=== PATIENT | female | born 1990 | race Caucasian/White ===

== ENCOUNTER 2023-12-23 01:04 | Observation (INO) | payer SELFPAY ==
[2023-12-23] MEDS ORDERED: KETOROLAC 30 MG/ML INJ ONE (02:03)
[2023-12-23 02:06] LABS: Anion Gap 9.1 mEq/L (5.0-15.0); Potassium 3.1 mEq/L (3.5-5.1)
[2023-12-23 02:09] LABS: Troponin High Sensitivity 1715.4 pg/mL (<58.9)
[2023-12-23 02:12] LABS: Absolute Eosinophils 0.1 K/uL (0-0.5); Absolute Lymphocytes (CBC) 2.5 K/uL (0.7-4.9); Absolute Monocytes 0.4 K/uL (0.1-1.3); Absolute Neutrophil 5.6 K/uL (1.8-8.0); Basophils % 0.5 % (0-1.3); Eosinophils % 1.4 % (0-4.4); Hematocrit 44.2 % (36.0-45.0); Hemoglobin 15.2 g/dL (12.0-15.0); Lymphocytes % 28.8 % (15.3-44.8); MCH 31.2 pg (27.0-35.0); MCHC 34.3 g/dL (32.0-36.0); MCV 90.9 fL (80-100); Monocytes % 4.3 % (3.3-12.3); Platelets 243 thou/uL (152-406); RBC Red Blood Cell Count 4.86 M/uL (3.86-4.86); Red Cell Distribution Width 13.9 % (12.1-15.2)
[2023-12-23] MEDS ORDERED: MORPHINE 4 MG/ML SYR ONE (02:22)
[2023-12-23] MEDS ORDERED: ENOXAPARIN 80 MG/0.8 ML SQ ONE (02:22)
[2023-12-23] MEDS ORDERED: ASPIRIN 81 MG CHEWABLE TABLET ONE (02:22)
--- NOTE | 2023-12-23 02:30 | EDPHYS ---
Physician Documentation [facility] Name: Manjeet Lassiter Age: 33 yrs Sex: Female : 1990 Arrival Date: 12/23/2023 Time: 01:04 Bed 14 Private MD: ED Physician Michael Miranda HPI: 12/22 01:13 This 33 yrs old Female presents to ER via Unassigned with complaints of Chest ec2 Pain, Arm Pain. 01:13 Patient with history of anxiety as well as hypertension arrives today for left upper ec2 chest pain as well as arm pain. Reports pain is worse with laying flat. Patient reports no difficulty breathing. States that she has some stressors at home that she believes are exacerbating the symptoms. No falls injuries or trauma. . 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 - Infectious Disease History:: Denies. - Social history:: Smoking status: Patient reports the use of cigarette tobacco products, smokes one pack cigarettes per day. ROS: 01:13 Constitutional: as per hpi ec2 Exam: 01:13 Constitutional: GEN: NAD Head: atraumatic Eyes: EOMI Ears: External ears are ec2 normal. CV: regular rate LUNGS: no respiratory distress ABD: non-distended SKIN: no evidence of rashes MSK: Left upper chest wall with reproducible TTP, no deformities or crepitus appreciated. Vital Signs: 01:04 BP 150 / 107; Pulse 84; Resp 18; Temp 97.6(O); Pulse Ox 98% on R/A; Weight 74.84 kg; ss Height 5 ft. 7 in. ; Pain 5/10; 01:30 BP 152 / 108; Pulse 78; Resp 19; Pulse Ox 98% on R/A; al5 02:00 BP 148 / 104; Pulse 76; Resp 19; Pulse Ox 97% on R/A; al5 02:30 BP 147 / 108; Pulse 84; Resp 19; Pulse Ox 98% on R/A; al5 03:00 BP 152 / 104; Pulse 75; Resp 16; Pulse Ox 99% on R/A; al5 03:50 BP 139 / 92; Pulse 76; Resp 18; Pulse Ox 98% on R/A; ss 04:00 BP 137 / 98; Pulse 70; Resp 18; Pulse Ox 99% on R/A; al5 01:04 Body Mass Index 25.84 (74.84 kg, 170.18 cm) ss 01:04 Pain Scale: Adult ss MDM: 01:06 Patient medically screened. ec2 01:13 Data reviewed: vital signs. ED course: Patient with history of anxiety and hypertension ec2 arrives today for left chest pain. Examination remarkable for reproducible chest wall TTP. Will obtain lab work, EKG, chest x-ray and treat the patient's symptoms. Differential includes costochondritis, ACS, pleurisy, anxiety . 01:26 ED course: EKG independently reviewed and interpreted by me, shows normal sinus rhythm, ec2 rate of 83, no acute ST segment elevations, intervals are nonconcerning. . 02:14 ED course: Troponin elevated at 1700. Metabolic profile shows hypokalemia 3.1. Will ec2 give the patient potassium, aspirin, start the patient on Lovenox. Will admit for NSTEMI. . 02:29 ED course: Discussed case with hospitalist, pending admission. Chest x-ray ec2 independently reviewed and interpreted by me, shows no acute actionable process.. 12/22 01:13 Order name: Basic Metabolic Panel; Complete Time: 02:13 ec2 12/22 01:13 Order name: CBC with Diff; Complete Time: 02:28 ec2 12/22 01:13 Order name: Troponin HS; Complete Time: 02:13 ec2 12/22 02:17 Order name: PT-INR ec2 12/22 02:17 Order name: Ptt, Activated ec2 12/22 03:22 Order name: Urine Drug Screen EDMS 12/22 03:22 Order name: NT PRO-BNP EDMS 12/22 03:22 Order name: Thyroid Stimulating Hormone EDMS 12/22 03:22 Order name: CBC with Automated Diff EDMS 12/22 03:22 Order name: CBC with Automated Diff EDMS 12/22 03:22 Order name: Comprehensive Metabolic Panel EDKY 12/22 03:22 Order name: Comprehensive Metabolic Panel EDKY 12/22 03:22 Order name: Lipid Profile [facility] 12/22 03:22 Order name: Lipid Profile [facility] 12/22 03:22 Order name: Troponin High Sensitivity [facility]KY 12/22 03:22 Order name: Troponin High Sensitivity [facility] 12/22 03:22 Order name: Troponin High Sensitivity [facility] 12/22 01:13 Order name: XRAY Chest (1 view) 2 12/22 03:22 Order name: Echo with Doppler EDKY 12/22 03:42 Order name: Angio Aorta For Dissection EDKY 12/22 03:22 Order name: CONS Physician Consult EDKY 12/22 01:13 Order name: Cardiac monitoring; Complete Time: 01:25 ec2 12/22 01:13 Order name: EKG - Nurse/Tech; Complete Time: 01:25 ec2 12/22 01:13 Order name: IV Saline Lock; Complete Time: 01:25 ec2 12/22 01:13 Order name: Labs collected and sent; Complete Time: 01:25 ec2 12/22 01:13 Order name: O2 Per Protocol; Complete Time: 01:16 ec2 12/22 01:13 Order name: O2 Sat Monitoring; Complete Time: 01:17 ec2 Administered Medications: 02:09 Drug: Ketorolac IVP 15 mg IVP once Route: IVP; Site: right antecubital; al5 03:36 Follow up: Response: No adverse reaction; Pain is unchanged, physician notified al5 02:37 Drug: Aspirin PO Chewable Tablet 324 mg PO once; 81 mg tablets x 4 Route: PO; al5 03:37 Follow up: Response: No adverse reaction al5 02:37 Drug: morphine IVP or IV 4 mg IVP once over 4 mins Route: IVP; Infused Over: 4 mins; al5 Site: right antecubital; 03:37 Follow up: Response: No adverse reaction; Pain is decreased al5 02:37 Drug: Enoxaparin Sub-Q 1 mg/kg Sub-Q once Route: Sub-Q; Site: abdomen; al5 03:36 Follow up: Response: No adverse reaction al5 03:54 Drug: Potassium Chloride PO 40 mEq PO once Route: PO; al5 04:17 Follow up: Response: No adverse reaction al5 03:54 Drug: Potassium Chloride IV 20 mEq IV at calculated rate once; administer over 1-2 al5 hours Route: IV; Rate: calculated rate; Site: right antecubital; 04:17 Follow up: Response: No adverse reaction; IV Status: Infusion continued upon admission al5 Disposition Summary: 12/23/23 02:29 Hospitalization Ordered Notes: Hospitalization Status: Inpatient Admission ec2 Provider: Hany Villeda ec2 [facility] Condition: Stable ec2 Problem: new ec2 Symptoms: have improved ec2 Bed/Room Type: Standard ec2 Room Assignment: 406(12/23/23 03:29) [facility] Diagnosis - NSTEMI ec2 Discharge Instructions: - Discharge Summary Sheet ec2 - Nonspecific Chest Pain, Adult, [id number] ec2 Forms: - Medication Reconciliation Form ec2 - SBAR form ec2 - Leadership Thank You Letter ec2 Signatures: Dispatcher [employer] EDMS Odalis Manzo RN RN Michael Miranda MD MD ec2 Jessica Leo [facility] Araseli Benitez RN RN al5 Corrections: (The following items were deleted from the chart) 01:13 01:13 Chest Single View+RAD.RAD.BRZ ordered. EDKY EDMS 03:29 02:29 ec2 [facility] 03:42 03:22 Chest Angio ordered. EDKY EDMS
--- NOTE | 2023-12-23 02:30 | ER ---
Nurse's Notes [facility] Name: Manjeet Lassiter Age: 33 yrs Sex: Female : 1990 Arrival Date: 12/23/2023 Time: 01:04 Bed 14 Private MD: Diagnosis: NSTEMI Presentation: 12/22 01:04 Chief complaint: Patient states: chest discomfort that radiates down L arm that began ss at 1900 yesterday evening. Coronavirus screen: Client denies travel out of the [place] in the last 14 days. Ebola Screen: Patient denies exposure to infectious person. Patient denies travel to an Ebola-affected area in the 21 days before illness onset. Initial Sepsis Screen: Does the patient meet any 2 criteria? No. Patient's initial sepsis screen is negative. Does the patient have a suspected source of infection? No. Patient's initial sepsis screen is negative. Risk Assessment: Do you want to hurt yourself or someone else? Patient reports no desire to harm self or others. Onset of symptoms was December 22, 2023. 01:04 Method Of Arrival: Ambulatory ss 01:04 Acuity: JOY 3 ss Triage Assessment: : General: Appears in no apparent distress. comfortable, Behavior is calm, cooperative. ss Respiratory: Airway is patent Respiratory effort is even, unlabored. 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 - Infectious Disease History:: Denies. - Social history:: Smoking status: Patient reports the use of cigarette tobacco products, smokes one pack cigarettes per day. Screenin: [facility] ED Fall Risk Assessment (Adult) History of falling in the last 3 months, al5 including since admission No falls in past 3 months (0 pts) Confusion or Disorientation No (0 pts) Intoxicated or Sedated No (0 pts) Impaired Gait No (0 pts) Mobility Assist Device Used No (0 pt) Altered Elimination No (0 pt) Score/Fall Risk Level 0 - 2 = Low Risk Oriented to surroundings, Maintained a safe environment, Hourly rounding (assess needs \T\ fall precautionary measures) done. Abuse screen: Denies threats or abuse. Denies injuries from another. Nutritional screening: No deficits noted. Tuberculosis screening: No symptoms or risk factors identified. Assessment: 01:28 General: Appears in no apparent distress. Behavior is calm, cooperative. Pain: al5 Complains of pain in chest Pain radiates to left arm Pain currently is 5 out of 10 on a pain scale. Pain began since 1900 yesterday. Neuro: Level of Consciousness is awake, alert, obeys commands, Oriented to person, place, time, situation. Cardiovascular: Reports chest pain, radiate down L arm Capillary refill < 3 seconds Patient's skin is warm and dry. Respiratory: Airway is patent Respiratory effort is even, unlabored, Respiratory pattern is regular, symmetrical. GI: No signs and/or symptoms were reported involving the gastrointestinal system. : No signs and/or symptoms were reported regarding the genitourinary system. EENT: No signs and/or symptoms were reported regarding the EENT system. Derm: Skin is intact, Skin is pink, warm \T\ dry. normal. Musculoskeletal: No signs and/or symptoms reported regarding the musculoskeletal system. 02:50 Reassessment: Patient appears in no apparent distress at this time. No changes from al5 previously documented assessment. Patient and/or family updated on plan of care and expected duration. Pain level reassessed. Patient is alert, oriented x 3, equal unlabored respirations, skin warm/dry/pink. 04:16 Reassessment: Patient appears in no apparent distress at this time. No changes from al5 previously documented assessment. Patient and/or family updated on plan of care and expected duration. Pain level reassessed. Patient is alert, oriented x 3, equal unlabored respirations, skin warm/dry/pink. Vital Signs: 01:04 BP 150 / 107; Pulse 84; Resp 18; Temp 97.6(O); Pulse Ox 98% on R/A; Weight 74.84 kg; ss Height 5 ft. 7 in. ; Pain 5/10; 01:30 BP 152 / 108; Pulse 78; Resp 19; Pulse Ox 98% on R/A; al5 02:00 BP 148 / 104; Pulse 76; Resp 19; Pulse Ox 97% on R/A; al5 02:30 BP 147 / 108; Pulse 84; Resp 19; Pulse Ox 98% on R/A; al5 03:00 BP 152 / 104; Pulse 75; Resp 16; Pulse Ox 99% on R/A; al5 03:50 BP 139 / 92; Pulse 76; Resp 18; Pulse Ox 98% on R/A; ss 04:00 BP 137 / 98; Pulse 70; Resp 18; Pulse Ox 99% on R/A; al5 01:04 Body Mass Index 25.84 (74.84 kg, 170.18 cm) ss 01:04 Pain Scale: Adult ss ED Course: 01:06 Patient arrived in ED. im 01:06 Michael Miranda MD is Attending Physician. ec2 01:10 Araseli Benitez, CLARITA is Primary Nurse. al5 01:25 Basic Metabolic Panel Sent. al5 01:25 CBC with Diff Sent. al5 01:25 Troponin HS Sent. al5 01:28 Triage completed. ss 01:28 No provider procedures requiring assistance completed. Inserted saline lock: 22 gauge al5 in right antecubital area, using aseptic technique. Patient maintains SpO2 saturation greater than 95% on room air. 01:28 Patient has correct armband on for positive identification. Placed in gown. Bed in low al5 position. Call light in reach. Side rails up X 1. Provided Education on: processes and procedures. Client placed on continuous cardiac and pulse oximetry monitoring. NIBP monitoring applied. paralegal supervisor on. 01:28 Arm band placed on right wrist. ss 02:02 XRAY Chest (1 view) In Process Unspecified. EDMS 02:14 Notified ED physician of a critical lab result(s). troponin 1715.4. al5 02:29 Hany Villeda MD is Hospitalizing Provider. ec2 02:37 Ptt, Activated Sent. al5 02:37 PT-INR Sent. al5 04:16 Patient admitted, IV remains in place. al5 Administered Medications: 02:09 Drug: Ketorolac IVP 15 mg IVP once Route: IVP; Site: right antecubital; al5 03:36 Follow up: Response: No adverse reaction; Pain is unchanged, physician notified al5 02:37 Drug: Aspirin PO Chewable Tablet 324 mg PO once; 81 mg tablets x 4 Route: PO; al5 03:37 Follow up: Response: No adverse reaction al5 02:37 Drug: morphine IVP or IV 4 mg IVP once over 4 mins Route: IVP; Infused Over: 4 mins; al5 Site: right antecubital; 03:37 Follow up: Response: No adverse reaction; Pain is decreased al5 02:37 Drug: Enoxaparin Sub-Q 1 mg/kg Sub-Q once Route: Sub-Q; Site: abdomen; al5 03:36 Follow up: Response: No adverse reaction al5 03:54 Drug: Potassium Chloride PO 40 mEq PO once Route: PO; al5 04:17 Follow up: Response: No adverse reaction al5 03:54 Drug: Potassium Chloride IV 20 mEq IV at calculated rate once; administer over 1-2 al5 hours Route: IV; Rate: calculated rate; Site: right antecubital; 04:17 Follow up: Response: No adverse reaction; IV Status: Infusion continued upon admission al5 Medication: 01:28 VIS not applicable for this client. al5 Outcome: 02:29 Decision to Hospitalize by Provider. ec2 05:27 Admitted to Tele accompanied by tech, via wheelchair, room 406, with chart, al5 05:27 Condition: good 05:27 Instructed on the need for admit, 05:27 Patient left the ED. al5 Signatures: Dispatcher [employer] Odalis Jim RN RN Kaila Quintanilla Edwin, MD MD ec2 Araseli Benitez RN RN al5
[2023-12-23 02:55] LABS: PT Prothrombin Time 11.5 SECONDS (9.4-12.5); PTT, Activated Partial Thromb 33.7 SECONDS (24.3-36.9); Protime INR 1.03
--- NOTE | 2023-12-23 03:11 | P.HP ---
Certification for Inpatient Patient admitted to: Inpatient With expected LOS: >2 Midnights Patient will require the following post-hospital care: None Practitioner: I am a practitioner with admitting privileges, knowledge of patient current condition, hospital course, and medical plan of care. Services: Services provided to patient in accordance with Admission requirements found in Title 42 Section 412.3 of the Code of Federal Regulations Patient History Date of Service: 12/23/23 Reason for admission: Chest pain History of Present Illness: 53-year-old female past medical history of hypertension, anxiety/depression, chronic tobacco use who presented because of sudden onset left-sided chest pain radiating to the left arm, rated intensity at about 10 out of 10, pain onset was earlier this evening about 6 hours ago. No similar history in the past. No dizziness syncope or shortness of breath. Strong positive family history of CADfather and grandparents with FL in their 30s or 40s, father from aortic aneurysm in his 50s On arrival in the ED vital signs were stable except for blood pressure of 150/127, EKG showed normal sinus rhythm with no ST segment changes, chest x-ray was clear, CBC was unremarkable, BMP shows potassium of 3.1 otherwise normal. Troponin elevated at 1715. Patient has been admitted for non-STEMI Allergies No Known Allergies Allergy (Unverified 12/23/23 03:26) Home medications list reviewed: Yes - Past Medical/Surgical History Has patient received pneumonia vaccine in the past: No Diabetic: No -: Hypertension -: Anxiety/depression -: Chronic tobacco use Past Surgical History: Reviewed- Non-Contributory - Family History Family History: Reviewed- Non-Contributory - Social History Smoking Status: Heavy Tobacco smoker (>10 cigarettes/day) Counseled patient to stop smoking for: more than 10 minutes Smoking therapy provided: Yes Patient receptive to therapy: Yes Alcohol use: No CD- Drugs: No Caffeine use: No Place of Residence: Home Review of Systems Cardiovascular: Chest Pain Physical Examination - Physical Exam General: Alert, In no apparent distress, Oriented x3, Cooperative HEENT: Atraumatic, Normocephalic Neck: Supple, 2+ carotid pulse no bruit, JVD not distended Respiratory: Clear to auscultation bilaterally, Normal air movement Cardiovascular: No edema, Normal pulses, Regular rate/rhythm, Normal S1 S2, Other (Tenderness on the upper left chest wall extending to the shoulder area) Gastrointestinal: Normal bowel sounds, Soft and benign, Non-distended, No ascites, No masses Musculoskeletal: No clubbing, No swelling Neurological: Normal speech, Normal strength at 5/5 x4 extr, Sensation intact, Cranial nerves 3-12 intact - Studies Laboratory Data (last 24 hrs) 12/23/23 12/23/23 12/23/23 02:33 01:24 01:24 WBC 8.50 Hgb 15.2 H Hct 44.2 Plt Count 243 PT 11.5 INR 1.03 APTT 33.7 Sodium 136 Potassium 3.1 L BUN 8 Creatinine 0.79 Glucose 91 Assessment and Plan - Problems (Diagnosis) (1) Non-STEMI (non-ST elevated myocardial infarction) Current Visit: Yes Status: Acute - Plan Impression Acute non-STEMI Hypertension Chronic tobacco use Anxiety disorderstable Plan Will admit to inpatient Obtain stat CT of the chest to rule out aortic dissection Trend troponin level Start patient on aspirin/Plavix/Lovenox/statin Obtain lipid panel in a.m. Cardiology consult in a.m., may need angiogram if negative CT Obtain echo in a.m. Obtain urine drug screen Tobacco cessation advised, start nicotine patch Start low-dose beta-marcio Replace potassium, start gentle IV fluids NS with KCl Follow magnesium level Full code Lovenox for DVT prophylaxis Possible hospital stay for more than 48 hours - Advance Directives Does patient have a Living Will: No Does patient have a Durable POA for Healthcare: No Time Spent Managing Pts Care (In Minutes): 65
[2023-12-23] MEDS ORDERED: ALPRAZOLAM 0.25 MG TABLET PO PRN (03:13)
[2023-12-23] MEDS ORDERED: ONDANSETRON 4 MG/2 ML VIAL IV PRN (03:13)
[2023-12-23] MEDS: ASPIRIN 325 MG TAB PO ONE (03:13)
[2023-12-23] MEDS ORDERED: ALBUTEROL 2.5 MG/3 ML NEB SOL NEB PRN (03:13)
[2023-12-23] MEDS: CLOPIDOGREL 75 MG TABLET PO ONE (03:13)
[2023-12-23] MEDS ORDERED: HYDROCODONE/APAP 5/325 MG TAB PO PRN (03:13)
[2023-12-23] MEDS ORDERED: NITROGLYCERIN 0.4 MG/TAB SL PRN (03:13)
[2023-12-23] MEDS ORDERED: MORPHINE 2 MG/ML SYR IV PRN (03:13)
[2023-12-23] MEDS: METOPROLOL TAR 50 MG TAB PO SCH (03:13)
[2023-12-23] MEDS ORDERED: HYDRALAZINE HCL 20 MG/ML VIAL IV PRN (03:17)
[2023-12-23] MEDS: POTASSIUM 25 MEQ EFFERV TAB PO ONE (03:18)
[2023-12-23] MEDS ORDERED: POTASSIUM CL SA 10 MEQ TAB PO ONE ×2 (03:42→15:00)
[2023-12-23] MEDS ORDERED: KCL 20 MEQ/100 mL IVPB 100 ML IV ONE (03:43)
[2023-12-23] MEDS ORDERED: NA CHLORIDE 0.9% 500 ML ONE ×2 (03:43→09:45)
[2023-12-23] MEDS: ENOXAPARIN 60 MG/0.6 ML SQ SCH (04:00)
[2023-12-23] MEDS ORDERED: NS KCL 20MEQ 20 MEQ/1,000 ML BAG IV SCH (04:00)
[2023-12-23 05:43] VITALS: BMI 25.7
[2023-12-23 08:45] VITALS: TEMP 97.1
[2023-12-23] MEDS: NICOTINE 21 MG/PAT TD SCH (09:00)
[2023-12-23] MEDS: lisinopriL 10 MG TAB PO SCH (09:00)
[2023-12-23] MEDS ORDERED: ENOXAPARIN 40 MG/0.4 ML SQ SCH (09:00)
[2023-12-23] MEDS: FAMOTIDINE 20 MG/2 ML VIAL IV SCH (09:00)
--- NOTE | 2023-12-23 09:06 | P.CNS ---
Date of Consult: 12/23/23 Chief Complaint: Chest pain History of Present Illness: Patient with PMH of anxiety, presented with chest pain that started yesterday, pressure in nature, radiating to neck and left arm, denies any other cardiac symptoms, report anxiety and going through a lot of stress recently. Allergies No Known Allergies Allergy (Unverified 12/23/23 03:26) Home medications list reviewed: Yes Home Medications: Losartan/Hydrochlorothiazide [Losartan-Hctz 50-12.5 mg Tab] 1 tab PO DAILY 12/23/23 Paroxetine HCl [Paxil] 1 tab PO DAILY 12/23/23 clonazePAM [Clonazepam] 1 tab PO BID 12/23/23 - Past Medical/Surgical History Diabetic: No -: Hypertension -: Anxiety/depression -: Chronic tobacco use - Social History Smoking Status: Current every day smoker Alcohol use: No CD- Drugs: No Caffeine use: No Place of Residence: Home Review of Systems 10-point ROS is otherwise unremarkable Physical Examination Temp Pulse Resp BP Pulse Ox 97.1 F 75 20 122/68 99 12/23/23 08:00 12/23/23 08:00 12/23/23 08:00 12/23/23 08:00 12/23/23 08:00 General: Alert, In no apparent distress HEENT: Atraumatic, PERRLA, Mucous membr. moist/pink, EOMI, Sclerae nonicteric Neck: Supple, 2+ carotid pulse no bruit, No LAD, Without JVD or thyroid abnormality Respiratory: Clear to auscultation bilaterally, Normal air movement Cardiovascular: Regular rate/rhythm, Normal S1 S2 Gastrointestinal: Normal bowel sounds, No tenderness Musculoskeletal: No tenderness Integumentary: No rashes Neurological: Normal gait, Normal speech, Normal tone, Normal affect Lymphatics: No axilla or inguinal lymphadenopathy Laboratory Data (last 24 hrs) 12/23/23 12/23/23 12/23/23 02:33 01:24 01:24 WBC 8.50 Hgb 15.2 H Hct 44.2 Plt Count 243 PT 11.5 INR 1.03 APTT 33.7 Sodium 136 Potassium 3.1 L BUN 8 Creatinine 0.79 Glucose 91 - Problems (1) HTN (hypertension) Current Visit: Yes Status: Acute Plan: continue home medications (2) Non-STEMI (non-ST elevated myocardial infarction) Current Visit: Yes Status: Acute Plan: coronary angiogram, ASA 81 mg daily Lipitor 40 mg daily Heparin drip ACS protocol get Echo.
[2023-12-23] MEDS ORDERED: LORazepam 2 MG/ML VIAL IV ONE (09:30)
[2023-12-23] MEDS ORDERED: LIDOCAINE 1% 20 ML MDV ONE (09:31)
[2023-12-23] MEDS ORDERED: HEPARIN 10,000 UNIT/10 ML VIAL IV ONE (09:31)
[2023-12-23] MEDS ORDERED: MIDAZOLAM HCL 2 MG/2 ML INJ ONE (09:31)
[2023-12-23] MEDS ORDERED: HEPA 1000U/500MLS 2,000 UNIT/1,000 ML BAG IV ONE (09:31)
[2023-12-23] MEDS ORDERED: FENTANYL CITR 100 MCG/2 ML ONE (09:32)
[2023-12-23] MEDS ORDERED: CLOPIDOGREL 75 MG TABLET ONE (09:32)
[2023-12-23] MEDS ORDERED: ATROPINE SULF 1 MG/10 ML SYR IV ONE (09:33)
[2023-12-23] MEDS ORDERED: HEPARIN 5000 UNIT/ML 1 ML VIAL ONE (09:33)
[2023-12-23] MEDS ORDERED: TICAGRELOR 90 MG TABLET PO ONE (09:33)
[2023-12-23] MEDS ORDERED: ASPIRIN 325 MG TAB ONE (09:33)
[2023-12-23] MEDS: ASPIRIN EC 81 MG TAB PO SCH (09:36)
[2023-12-23] MEDS ORDERED: FLUMAZENIL 0.1 MG/ML (5 mL VIAL) IV ONE (10:32)
[2023-12-23] MEDS ORDERED: Phenylephrine HCl 10 MG/ML 1 ML VIAL ONE (10:32)
[2023-12-23] MEDS ORDERED: NALOXONE 0.4 MG/ML VIAL ONE (10:32)
[2023-12-23 11:55] VITALS: O2SAT 98
[2023-12-23 12:07] LABS: Thyroid Stimulating Hormone 1.03 uIU/mL (0.358-3.740)
[2023-12-23 12:12] LABS: Troponin High Sensitivity 5193.4 pg/mL (<58.9)
[2023-12-23] MEDS ORDERED: clonazePAM 0.5 MG TAB PO PRN (13:19)
--- NOTE | 2023-12-23 14:37 | ECHO ---
HEIGHT: 5 ft 7 in WEIGHT: 164 lb 0 oz DATE OF STUDY: 12/23/[address]: Hany Villeda MD 2-DIMENSIONAL: YES M.MODE: YES DOPPLER: YES COLOR FLOW: YES TDS: PORTABLE: YES DEFINITY: BUBBLE STUDY: DIAGNOSIS: NON ST ELEVATION MYOCARDIAL INFARCTION CARDIAC HISTORY: CATHERIZATION: NO SURGERY: NO PROSTHETIC VALVE: NO PACEMAKER: NO MEASUREMENTS (cm) DIASTOLIC (NORMALS) SYSTOLIC (NORMALS) IVSd 0.9 (0.6-1.2) LA Diam 2.0 (1.9-4.0) LVEF 60-65% LVIDd 3.4 (3.5-5.7) LVIDs 2.4 (2.0-3.5) %FS 29% LVPWd 1.0 (0.6-1.2) Ao Diam 2.6 (2.0-3.7) 2 DIMENSIONAL ASSESSMENT: RIGHT ATRIUM: NORMAL LEFT ATRIUM: NORMAL RIGHT VENTRICLE: NORMAL LEFT VENTRICLE: NORMAL TRICUSPID VALVE: NORMAL MITRAL VALVE: NORMAL PULMONIC VALVE: NORMAL AORTIC VALVE: NORMAL PERICARDIAL EFFUSION: NONE AORTIC ROOT: NORMAL LEFT VENTRICULAR WALL MOTION: NORMAL DOPPLER/COLOR FLOW: NORMAL COMMENTS: 1. NORMAL LEFT VENTRICULAR SYSTOLIC FUNCTION, EJECTION FRACTION 60-65%, NORMAL WALL MOTION 2. NORMAL DIASTOLIC FUNCTION TECHNOLOGIST: KRISH TOPETE
--- NOTE | 2023-12-23 15:01 | P.DS ---
Admission Date: 12/23/23 Discharge Date: 12/23/23 Discharge Condition: GOOD Reason for Admission: Chest pain Consultations: CardiologyDr. Miramontes Procedures: Coronary angiogram-mild nonobstructive CAD Transthoracic echocardiogram-normal CT angio for dissection-no acute findings Brief History of Present Illness: 53-year-old female past medical history of hypertension, anxiety/depression, chronic tobacco use who presented because of sudden onset left-sided chest pain radiating to the left arm, rated intensity at about 10 out of 10, pain onset was earlier this evening about 6 hours ago. No similar history in the past. No dizziness syncope or shortness of breath. Strong positive family history of CADfather and grandparents with SD in their 30s or 40s, father from aortic aneurysm in his 50s On arrival in the ED vital signs were stable except for blood pressure of 150/127, EKG showed normal sinus rhythm with no ST segment changes, chest x-ray was clear, CBC was unremarkable, BMP shows potassium of 3.1 otherwise normal. Troponin elevated at 1715. Patient was admitted for non-STEMI Hospital Course: Patient was admitted to the hospital for chest pain, NSTEMI. Prior to admission she had a CT angio for dissection performed which was negative for acute aortic findings/PE. She underwent coronary angiogram on 12/22 which showed mild nonobstructive CAD and also had a transthoracic echocardiogram performed which was normal. Cardiology suspects patient has pericarditis and recommends treatment with colchicine, ibuprofen. 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 Make sure you are staying well-hydrated while taking these medications as they can be hard on your kidneys, also make sure you are taking the pantoprazole which will help to protect your stomach from becoming inflamed/irritated or havi ng bleeding. Please follow-up with your primary care doctor in 1 to 2 weeks Please also follow-up with cardiologyDr. Miramontes in 1 to 2 weeks Vital Signs/Physical Exam: Temp Pulse Resp BP Pulse Ox 97.1 F 79 16 114/82 99 12/23/23 08:00 12/23/23 12:35 12/23/23 12:35 12/23/23 12:35 12/23/23 08:00 General: Alert, In no apparent distress, Oriented x3 HEENT: Atraumatic, PERRLA Neck: Supple, JVD not distended Respiratory: Clear to auscultation bilaterally, Normal air movement Cardiovascular: Regular rate/rhythm, Normal S1 S2 Gastrointestinal: Normal bowel sounds, No tenderness Musculoskeletal: No tenderness Integumentary: No rashes Neurological: Normal speech, Normal tone Laboratory Data at Discharge: WBC 8.50 thou/uL (4.3-10.9) 12/23/23 01:24 Hgb 15.2 g/dL (12.0-15.0) H 12/23/23 01:24 Hct 44.2 % (36.0-45.0) 12/23/23 01:24 Plt Count 243 thou/uL (152-406) 12/23/23 01:24 PT 11.5 SECONDS (9.4-12.5) 12/23/23 02:33 INR 1.03 12/23/23 02:33 APTT 33.7 SECONDS (24.3-36.9) 12/23/23 02:33 Sodium 136 mEq/L (136-145) 12/23/23 01:24 Potassium 3.1 mEq/L (3.5-5.1) L 12/23/23 01:24 BUN 8 mg/dL (7-18) 12/23/23 01:24 Creatinine 0.79 mg/dL (0.55-1.02) 12/23/23 01:24 Glucose 91 mg/dL (74-106) 12/23/23 01:24 Home Medications: Colchicine 0.6 mg PO BID #60 cap 12/23/23 Losartan/Hydrochlorothiazide [Losartan-Hctz 50-12.5 mg Tab] 1 tab PO DAILY 12/23/23 Pantoprazole [Protonix Tab*] 40 mg PO DAILY #30 tab 12/23/23 Paroxetine HCl [Paxil] 1 tab PO DAILY 12/23/23 clonazePAM [Clonazepam] 1 tab PO BID 12/23/23 New Medications: Colchicine 0.6 mg PO BID #60 cap Pantoprazole [Protonix Tab*] 40 mg PO DAILY #30 tab Physician Discharge Instructions: Patient was admitted to the hospital for chest pain, NSTEMI. Prior to admission she had a CT angio for dissection performed which was negative for acute aortic findings/PE. She underwent coronary angiogram on 12/22 which showed mild nonobstructive CAD and also had a transthoracic echocardiogram performed which was normal. Cardiology suspects patient has pericarditis and recommends treatment with colchicine, ibuprofen. 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 Make sure you are staying well-hydrated while taking these medications as they can be hard on your kidneys, also make sure you are taking the pantoprazole which will help to protect your stomach from becoming inflamed/irritated or having bleeding. Please follow-up with your primary care doctor in 1 to 2 weeks Please also follow-up with cardiologyDr. Fe in 1 to 2 weeks Diet: Regular Activity: Ad abbe Followup: Jeison Miramontes MD [ACTIVE - CAN ADMIT] - 1-2 Weeks NONE,NONE [Primary Care Provider] - 1-2 Weeks Time spent managing pt's care (in minutes): 45
--- NOTE | 2023-12-23 15:18 | RAD REPORT ---
EXAM DESCRIPTION: RAD - Chest Single View - 12/23/2023 2:00 am CLINICAL HISTORY: 33 years, Female, Chest pain. COMPARISON: None. FINDINGS: 1 view of the chest (AP portable projection) was obtained. No prior films are available at this time for comparison. There is normal lung volume. Mediastinum: The cardiomediastinal silhouette appears normal in size and shape. Lungs: No areas of consolidations or masses are identified. Heart: The heart is normal in size. Thoracic aorta: The thoracic aorta demonstrate to be normal. Pulmonary vasculature: The pulmonary vasculature is normal in distribution. Pleura: The costophrenic angles demonstrate to be sharp. Osseous structures: The bony structures demonstrate to be within normal limits. Other: External EKG leads within the [id number] limits diagnosis. IMPRESSION: No acute cardiopulmonary disease is seen Electronically signed by: Carter Hernandez MD 12/23/2023 03:25 AM CDT RP Due to temporary technical issues with the PACS/Fluency reporting system, reports are being signed by the in house radiologists without review as a courtesy to insure prompt reporting. The interpreting radiologist is fully responsible for the content of the report.
--- NOTE | 2023-12-23 15:27 | RAD REPORT ---
EXAM DESCRIPTION: CT - Angio Aorta For Dissection - 12/23/2023 6:27 am CLINICAL HISTORY: Rule out aortic dissection. COMPARISON: XR Chest 12/23/2023. TECHNIQUE: CT CHEST ABDOMEN PELVIS ANGIOGRAPHY WITH IV CONTRAST on 12/23/2023 3:19 AM CDT. MIPS recon structions were generated. This exam was performed according to our departmental dose-optimization program, which includes autom ated exposure control, adjustment of the mA and/or kV according to patient size and/or use of iterati ve reconstruction technique. FINDINGS: Vascular: Thoracic aorta is normal in course and caliber without aneurysm or dissection. P ulmonary arteries are adequately opacified without acute or chronic filling defects. Abdominal aorta is normal in course and caliber without aneurysm. Pelvic arteries are patent without aneurysm or occl usion. Chest: The heart is normal in size. There is no pericardial effusion. Intrathoracic lymph nodes are n ot enlarged. There is no pleural effusion, pleural thickening or pneumothorax. Central airways are patent. There i s mild upper lung centrilobular and possibly paraseptal emphysema. Abdomen: The liver is normal in appearance. There is no biliary dilatation. Gallbladder is normal in appearance. The pancreas and spleen are normal in appearance. The adrenal glands and kidneys are unre markable. There is no free air. There is no retroperitoneal adenopathy. Pelvis: There is no bowel obstruction. Urinary bladder is unremarkable. There is no free fluid. Uteru s is normal in size. Appendix is normal. Skeleton: There are no acute osseous findings. No suspicious bony lesions. IMPRESSION: No definite acute process. Electronically signed by: Rao Horton MD 12/23/2023 06:02 AM CDT RP Due to temporary technical issues with the PACS/Fluency reporting system, reports are being signed by the in house radiologists without review as a courtesy to insure prompt reporting. The interpreting radiologist is fully responsible for the content of the report.
[2023-12-23 16:12] VITALS: BP 108/68
--- NOTE | 2023-12-23 16:53 | EKG ---
Test Date: 2023-12-23 Test Time: 01:23:19 Whale Trainer: ALEXA MEASUREMENT RESULTS: Intervals: Rate: 83 ID: [id number] QRSD: 76 QT: 372 QTc: 437 [place]: P: 29 ID: [id number] QRS: 22 T: 39 INTERPRETIVE STATEMENTS: Normal sinus rhythm Normal ECG No previous ECG available for comparison Electronically Signed On 12-23-23 16:52:28 CDT by Jabari Alonso
[2023-12-23 17:37] LABS: Barbiturates NEGATIVE (NEGATIVE); Benzodiazepines NEGATIVE (NEGATIVE); Cocaine NEGATIVE (NEGATIVE); METHAMPHETAM NEGATIVE (NEGATIVE); Methadone NEGATIVE (NEGATIVE); Opiates NEGATIVE (NEGATIVE); Phencyclidine NEGATIVE (NEGATIVE); THC Cannibis NEGATIVE (NEGATIVE)
--- NOTE | 2023-12-23 18:12 | OP ---
Date of Procedure: 12/23/2023 Surgeon: Jeison Miramontes Procedure Performed: Selective coronary angiogram. Indication For Procedure: [id number]. Complications: None. Estimated Blood Loss: Less than 50 cc. Access: Right radial, closed by TR band. Sedation Time: 20 minutes with 1 of Versed and 50 of fentanyl. Description Of Procedure: After risks, and benefits, and alternatives were explained to the patient, patient agreed to proceed with procedure and signed informed consent. Patient was brought back to [facility] medical lab technologist, prepped and draped in sterile fashion. Time-out was performed. Sedation was administer ed. Next, the right radial access was obtained. The [place] 4.0 catheter was advanced over a J-wire t o the aortic root and the catheter was used for selective angiogram of the left and right coronary ar [employer] systems. The catheter was pulled back over a J-wire. Sheath was removed. TR band was applied and hemostasis was achieved. The patient was moved back to recovery room in stable condition. Findings: 1.Left main normal. 2.LAD, proximal mild luminal irregularities. Then mid 30% to 40% disease at the origin of diagonal. This is large with the ostial 30% disease and mild luminal irregularities. Mid to distal LAD, mild luminal irregularities. 3.Diagonal 1; large, proximal 30% disease, then mild luminal irregularities. 4.Left circ; mild luminal irregularities. 5.RCA; proximal 30% to 40% disease and mild luminal irregularities. Assessment And Plan: Mild nonobstructive coronary artery disease. The plan will be to continue medical management for coronary artery disease. KELLEE/MERY Voice ID: [id number] Report ID: [id number]
[2023-12-23] MEDS ORDERED: ATORVASTATIN 20 MG TAB PO SCH (21:00)
[2023-12-24] MEDS ORDERED: LOSARTAN/HCTZ 50-12.5 PO SCH (09:00)
[2023-12-24] MEDS ORDERED: PARoxetine HCL 10 MG TAB PO SCH (09:00)
== END 2023-12-23 16:00 | disposition home health service (06) ==
LOC: ER 01:04 → 4TH 03:11 → INTOOBSV 03:11
PROVIDERS: ADMIT Internal Medicine; ATTEND Hospitalist
PROC: B2111ZZ Fluoroscopy of Multiple Coronary Arteries using Low Osmolar Contrast (ICD-10-PCS; principal; 2023-12-23)
DX: I21.4 Non-ST elevation (NSTEMI) myocardial infarction (principal); I25.10 Atherosclerotic heart disease of native coronary artery without angina pectoris; I10 Essential (primary) hypertension; F41.9 Anxiety disorder, unspecified; F32.A Depression, unspecified; F17.210 Nicotine dependence, cigarettes, uncomplicated; Z71.6 Tobacco abuse counseling; Z79.899 Other long term (current) drug therapy; Z28.310 Unvaccinated for COVID-19; Z82.49 Family history of ischemic heart disease and other diseases of the circulatory system
CPT/HCPCS: 36415; 71045; 71275; 74175; 76937; 80048; 80307; 83880; 84443; 84484; 85025; 85610; 85730; 93005; 93306; 93454; 94760; 96365; 96372; 96375; 99152; 99153; 99285; C1893; G0378; J0461; J1644; J2001; J2250; J2310; J2371; J3010; J3480; J7040; Q9967